=== PATIENT | male | born 1965 | race Caucasian/White ===

== ENCOUNTER → 2020-03-17 11:53 | Outpatient (BNVA) | payer MEDICARE, BC, SELFPAY | PROVIDERS: Family Provider Registered Nurse; PCP Registered Nurse; Visit Provider Registered Nurse | DX: I25.10 Atherosclerotic heart disease of native coronary artery without angina pectoris (principal); K92.1 Melena; R07.89 Other chest pain; I10 Essential (primary) hypertension | CPT/HCPCS: 80053; 84484; 85025 ==

== ENCOUNTER → 2020-06-03 09:15 | Outpatient (BNVA) | payer BC, MEDICARE, SELFPAY | PROVIDERS: PCP Registered Nurse; Visit Provider Internal Medicine Cardiovascular Disease | DX: E78.2 Mixed hyperlipidemia (principal) | CPT/HCPCS: 80061 ==

== ENCOUNTER → 2020-12-15 08:20 | Outpatient (BNVA) | payer BC, MEDICARE, SELFPAY | PROVIDERS: PCP Registered Nurse; Visit Provider Internal Medicine Cardiovascular Disease | DX: E78.2 Mixed hyperlipidemia (principal) | CPT/HCPCS: 80061 ==

== ENCOUNTER → 2021-07-14 09:43 | Outpatient (BNVA) | payer BC, MEDICARE, SELFPAY | PROVIDERS: PCP Registered Nurse; Visit Provider Internal Medicine Cardiovascular Disease | DX: E78.2 Mixed hyperlipidemia (principal) | CPT/HCPCS: 80061 ==

== ENCOUNTER → 2021-09-12 09:44 | Outpatient (BNVA) | payer BC, MEDICARE, MEDICAID, SELFPAY | PROVIDERS: PCP Registered Nurse; Visit Provider Internal Medicine Cardiovascular Disease | DX: E78.2 Mixed hyperlipidemia (principal); I10 Essential (primary) hypertension | CPT/HCPCS: 80061; 80076 ==

== ENCOUNTER → 2022-10-05 11:00 | Outpatient (BNVA) | payer MEDICARE, MEDICAID, SELFPAY | PROVIDERS: PCP Registered Nurse; Visit Provider Nurse Practitioner Family | DX: I10 Essential (primary) hypertension (principal); I25.118 Atherosclerotic heart disease of native coronary artery with other forms of angina pectoris; Z87.891 Personal history of nicotine dependence | CPT/HCPCS: 36415; 80061; 99214 ==

== ENCOUNTER → 2023-04-04 13:56 | Outpatient (BNVA) | payer MEDICARE, MEDICAID, SELFPAY | PROVIDERS: PCP Registered Nurse; Visit Provider Internal Medicine Cardiovascular Disease | DX: I25.118 Atherosclerotic heart disease of native coronary artery with other forms of angina pectoris (principal); I95.1 Orthostatic hypotension; I10 Essential (primary) hypertension; E78.2 Mixed hyperlipidemia; Z87.891 Personal history of nicotine dependence | CPT/HCPCS: 99214 ==

== ENCOUNTER → 2024-01-17 14:03 | Outpatient (BNVA) | payer MEDICARE, MEDICAID, SELFPAY | PROVIDERS: PCP Registered Nurse; Visit Provider Internal Medicine Cardiovascular Disease | DX: I25.118 Atherosclerotic heart disease of native coronary artery with other forms of angina pectoris (principal); E78.5 Hyperlipidemia, unspecified; E78.2 Mixed hyperlipidemia; I10 Essential (primary) hypertension; Z87.891 Personal history of nicotine dependence | CPT/HCPCS: 99214 ==

== ENCOUNTER 2024-01-30 08:01 | Outpatient (CLI) | payer MEDICARE, MEDICAID, SELFPAY ==
[2024-01-30 08:38] LABS: Alanine Aminotransferase 25 U/L (0-41); Alkaline Phosphatase 234 U/L (40-130); Aspartate Amino Transferase 39 U/L (0-40); Chol HDL Ratio 4.32 mg/dL (1.0-5.00); Cholesterol 108 mg/dL (0-200); Globulin 3.8 g/dL (1.3-4.6); HDL Cholesterol 25 mg/dL (60-100); LDL Cholesterol Calculated 42 mg/dL (50-129); LDL HDL Ratio 1.68 RATIO (0.00-3.22); Total Bilirubin 0.6 mg/dL (0.15-1.2); Total Protein 7.8 g/dL (6.6-8.7); Triglycerides 206 mg/dL (0-150)
== END 2024-01-30 08:02 | disposition home or self-care (01) ==
LOC: LAB 08:02
PROVIDERS: Internal Medicine Cardiovascular Disease; PCP Registered Nurse; Visit Provider Internal Medicine
DX: E78.5 Hyperlipidemia, unspecified (principal)
CPT/HCPCS: 36415; 80061; 80076

== ENCOUNTER 2024-02-22 08:32 | Outpatient (CLI) | payer MEDICARE, MEDICAID, SELFPAY ==
--- NOTE | 2024-02-22 08:45 | US_ITS ---
WS: [id number] ULTRASOUND ABDOMEN LIMITED CLINICAL INFORMATION: E78.2 - Mixed hyperlipidemia COMPARISON: None. FINDINGS: Liver Size: Mild hepatomegaly Craniocaudal length: 16.5 cm. Echogenicity: Coarse Surface nodularity: None. Mass (size and location): Small polyp in the gallbladder measuring 4 x 6 mm Bile ducts Intrahepatic ducts: Normal. Common bile duct diameter: 0.3 cm. Gallbladder Small polyp in the gallbladder measuring 4 x 6 mm Gallstones: None. Gallbladder sludge: None. Gallbladder wall thickening: None. Pericholecystic fluid: None. Sonographic Rodriguez sign: Absent. Pancreas Not well seen due to bowel gas. Right kidney: Normal. Hydronephrosis: None. Size: 10.9 cm x 5.4 cm x 5.0 cm. Abdominal aorta and IVC Visualized portions are normal. Ascites: None. US/US gall bladder 60978 IMPRESSION: 1. Mild hepatomegaly with coarse hepatic echogenicity likely due to fatty infi ltration and/or hepatocellular disease. Recommend correlation with liver functi on tests. 2. Small polyp in the gallbladder measuring 4 x 6 mm. No shadowing. Gallbladde r is otherwise normal. 3. No hydronephrosis in the RIGHT kidney.
== END 2024-02-22 08:33 | disposition home or self-care (01) ==
LOC: RAD 08:32
PROVIDERS: PCP Registered Nurse; Visit Provider Internal Medicine Cardiovascular Disease
DX: E78.2 Mixed hyperlipidemia (principal); R74.8 Abnormal levels of other serum enzymes; I25.10 Atherosclerotic heart disease of native coronary artery without angina pectoris; I25.118 Atherosclerotic heart disease of native coronary artery with other forms of angina pectoris
CPT/HCPCS: 76705

== ENCOUNTER → 2024-07-21 09:56 | Outpatient (BNVA) | payer MEDICARE, MEDICAID, SELFPAY | PROVIDERS: PCP Registered Nurse; Visit Provider Internal Medicine Cardiovascular Disease | DX: I25.10 Atherosclerotic heart disease of native coronary artery without angina pectoris (principal); E78.2 Mixed hyperlipidemia; I10 Essential (primary) hypertension; K70.30 Alcoholic cirrhosis of liver without ascites; F17.200 Nicotine dependence, unspecified, uncomplicated | CPT/HCPCS: 99214 ==

== ENCOUNTER → 2025-01-19 09:50 | Outpatient (BNVA) | payer MEDICARE, MEDICAID, SELFPAY | PROVIDERS: PCP Registered Nurse; Visit Provider Nurse Practitioner Family | DX: I25.10 Atherosclerotic heart disease of native coronary artery without angina pectoris (principal); E78.2 Mixed hyperlipidemia; I10 Essential (primary) hypertension; Z87.891 Personal history of nicotine dependence | CPT/HCPCS: 99214 ==

== ENCOUNTER 2025-02-04 08:23 | Outpatient (CLI) | payer MEDICARE, MEDICAID, SELFPAY ==
--- NOTE | 2025-02-04 08:30 | USCV_ITS ---
Victor Hugo Graves Age: 59 Gender: M : 1965 Exam Date: 02/04/2025 08:38 Ordering Phys: Marlin Enriquez Technologist: Exam Location: [facility] [place] Indication: cp sob BP: 120 / 80 HR: 79 Rhythm: Sinus Technical Quality: MEASUREMENTS (Male / Female) Normal Values 2D ECHO LV Diastolic Diameter PLAX 5.5 cm 4.2 - 5.9 / 3.9 - 5.3 cm IVS Diastolic Thickness 1.3 cm 0.6 - 1.0 / 0.6 - 0.9 cm IVS Systolic Thickness 1.5 cm LVPW Diastolic Thickness 1.2 cm 0.6 - 1.0 / 0.6 - 0.9 cm LVPW Systolic Thickness 1.8 cm LVOT Diameter 2.2 cm LV Ejection Fraction 2D Teich 68.3 % LV Ejection Fraction MOD 4C 70.0 % LV Ejection Fraction MOD 2C 74.8 % LV Ejection Fraction 2C AL 73.4 % LA Diameter 3.8 cm RA Systolic Volume 4C AL 29.9 ml RA Systolic Volume 4C MOD 28.5 ml Aorta at Sinotubular Diameter 2.6 cm IVC Diameter 2.7 cm M-MODE LA Ao Ratio MM 1.2 MV E Point Septal Separation 1.6 cm AV Cusp Separation MM 2.4 cm DOPPLER AV Peak Velocity 127.0 cm/s LVOT Peak Velocity 101.0 cm/s AV Area Cont Eq vti 3.5 cm squared AV Area Cont Eq pk 3.1 cm squared MV Peak Velocity 119.0 cm/s MV Area PHT 4.3 cm squared Mitral E to A Ratio 1.6 TR Peak Velocity 221.0 cm/s TR Peak Gradient 19.5 mmHg TV Peak E Velocity 100.0 cm/s PV Peak Velocity 95.0 cm/s FINDINGS Left Ventricle Left ventricle is normal size. LV systolic function is normal with EF of 55-60%. No regional wall motion abnormalities are seen. Right Ventricle Normal in size and function Right Atrium Normal in size Left Atrium Normal in size Mitral Valve Structurally normal mitral valve. Trace mitral regurgitation Aortic Valve Structurally normal aortic valve. No significant stenosis or regurgitation Tricuspid Valve Insufficient TR jet to evaluate RVSP Pulmonic Valve Not well visualized Pericardium Normal Aorta Normal in size IVC Not well visualized CONCLUSIONS LV systolic function is normal with EF of 55-60%. Trace mitral regurgitation Venancio Johnson MD (Electronically Signed) Final Date: 25 February 2025 12:01 S
== END 2025-02-04 08:24 | disposition home or self-care (01) ==
PROVIDERS: PCP Registered Nurse; Visit Provider Nurse Practitioner Family
DX: E78.2 Mixed hyperlipidemia (principal); I10 Essential (primary) hypertension; I25.10 Atherosclerotic heart disease of native coronary artery without angina pectoris
CPT/HCPCS: 93306

== ENCOUNTER → 2025-07-27 15:14 | Outpatient (BNVA) | payer MEDICARE, MEDICAID, SELFPAY | PROVIDERS: PCP Registered Nurse; Visit Provider Internal Medicine Cardiovascular Disease | DX: I25.10 Atherosclerotic heart disease of native coronary artery without angina pectoris (principal); I10 Essential (primary) hypertension; E78.5 Hyperlipidemia, unspecified; K74.60 Unspecified cirrhosis of liver; F17.200 Nicotine dependence, unspecified, uncomplicated; Z95.5 Presence of coronary angioplasty implant and graft | CPT/HCPCS: 99214 ==